=== PATIENT | female | born 1955 ===

== ENCOUNTER 2020-09-04 06:19 | Observation (INO) ==
--- NOTE | 2020-08-30 10:56 | History & Physical Report ---
Date of Service August 30, 2020 date of surgery: 09/04/20 Procedure: Left Total Knee Arthroplasty Assessment & Plan (1) Arthritis of knee, left: Plan: Risks and benefits of procedure discussed in detail today, patient would like to proceed with a left total knee replacement at [facility] as scheduled. will obtain medical clearance prior to surgery as well as obtain PATs at [facility]. Will place on ASA 81mg po bid x 1 month post op, f/u 2 weeks post op for routine post-operative care and x-ray, sooner if having any problems. will make arrangements for HHPT at the time of discharge. At this point in time, has failed conservative measures and would like to proceed with surgical intervention. will use dermabond and stratafix for post op closure, had reaction to robert after her . The risks and benefits have been discussed including, but not limited to, risk of infection, nerve injury, stiffness, loss of motion, failure to improve, etc. Reasonable outcomes and options of treatment were discussed. An explanation of appropriate alternatives to the procedure that may be advantageous were discussed and their risks and benefits, as well as the risks and benefits of not proceeding with treatment. I offered to answer any additional inquiries concerning the treatment involved. All the patient's questions were answered. The patient is agreeable, understanding of the treatment plan and alternatives, and wishes to proceed with the treatment plan. History of Present Illness Chief Complaint: left knee pain Primary Care Provider: NO PCP Lucila is a 65 year old female who complains of left knee pain, presents for pre-op evaluation prior to a left total knee replacement by Dr Doe at [facility]. she complains of pain, decreased range of motion, instability and stiffness in her left knee. Currently the patient states that the symptoms are moderate- severe and rated at 8/10. The pain is described as aching, sharp and throbbing. Her symptoms are aggravated by ascending stairs, daily activities, first steps while awake walking. Prior NSAIDs include IBU and Aleve. she has been treated with previous cortisone and visco injections in the past without much relief as well as uses a knee brace. Allergies Allergy/AdvReac Type Severity Reaction Status Date / Time latex Allergy Unknown ITCHY SKIN Verified 08/29/20 12:25 RASH WITH GLOVES cephalexin AdvReac Unknown PASSED OUT Verified 08/29/20 12:25 morphine AdvReac Unknown PASSED OUT Verified 08/29/20 12:25 WITH PO-IV OK METAL Allergy Unknown RAISED Uncoded 08/29/20 12:25 SKIN WITH SKIN ROBERT IN INCISION Home Medications Medication Instructions Recorded Confirmed Type Nebulizer Medication 1 - 2 inh INHALATION TID PRN 08/29/20 08/29/20 History albuterol sulfate 90 mcg/actuation 2 puff INHALATION 6XD PRN 08/29/20 08/29/20 History aerosol inhaler (ProAir HFA) allopurinol 100 mg tablet 100 mg PO QAM 08/29/20 08/29/20 History aspirin 81 mg tablet,delayed 81 mg PO QAM 08/29/20 08/29/20 History release atorvastatin 80 mg tablet 80 mg PO HS 08/29/20 08/29/20 History buspirone 5 mg tablet 5 mg PO BID 08/29/20 08/29/20 History fluticasone propionate 50 1 spray INTRANASAL BID 08/29/20 08/29/20 History mcg/actuation nasal spray,suspension ibuprofen 800 mg tablet 800 mg PO TID 08/29/20 08/29/20 History lactobacillus combination no.4 3 2 cell PO QAM 08/29/20 08/29/20 History billion cell capsule (Probiotic) levocetirizine 5 mg tablet 5 mg PO HS 08/29/20 08/29/20 History levothyroxine 150 mcg tablet 150 mcg PO QAM 08/29/20 08/29/20 History lisinopril 20 mg tablet 20 mg PO QAM 08/29/20 08/29/20 History metoprolol succinate 25 mg 25 mg PO QAM 08/29/20 08/29/20 History tablet,extended release 24 hr montelukast 10 mg tablet 10 mg PO QAM 08/29/20 08/29/20 History multivitamin 1 tab PO QAM 08/29/20 08/29/20 History nitroglycerin 0.4 mg sublingual 0.4 mg SUBLINGUAL UD PRN 08/29/20 08/29/20 History tablet (Nitrostat) ofloxacin 0.3 % ear drops 10 drp OTIC (EAR) TID 08/29/20 08/29/20 History oxycodone-acetaminophen 10 mg-325 1 tab PO Q4H PRN 08/29/20 08/29/20 History mg tablet pantoprazole 20 mg tablet,delayed 20 mg PO QAM 08/29/20 08/29/20 History release solifenacin 10 mg tablet 10 mg PO QAM 08/29/20 08/29/20 History tizanidine 4 mg capsule 4 mg PO TID PRN 08/29/20 08/29/20 History trazodone 100 mg tablet 100 mg PO HS 08/29/20 08/29/20 History venlafaxine 225 mg tablet,extended 225 mg PO QAM 08/29/20 08/29/20 History release 24 hr Past Med/Surg History Medical History Anxiety Asthma Chronic back pain BULGING DISCS NECK/LUMBAR AREA Chronic obstructive pulmonary disease Depression Heart palpitations F/U DR [facility] Hiatal hernia Hyperlipidemia Hypertension Hypothyroidism S/P THYROIDECTOMY Injury S/P INJURY 2006-RIGHT ARM/SHOULDER -PAINFUL-HAS HAD INJECTIONS FOR PAIN MANAGEMENT Overactive bladder Surgical History History of adenoidectomy History of anesthesia reaction WOKE UP DURING SURGERY FOR NERVES TO BACK-UNABLE TO TELL ANYONE-VERY FRIGHTENING History of appendectomy History of cardiac cath 7 YRS AGO-[facility]NO STENTS History of carpal tunnel release R/L History of section X 2 History of cholecystectomy History of colonoscopy History of elbow surgery R/L ULNAR NERVE History of esophagogastroduodenoscopy (EGD) History of hand surgery RIGHT THUMB History of hysterectomy TOTAL History of knee surgery LEFT PATELLA History of myringotomy BILAT History of removal of cyst LARYNX-BENIGN History of shoulder surgery LEFT History of thyroidectomy, subtotal History of tonsillectomy History of tooth extraction Nausea and vomiting after administration of anesthetic agent HX MOTION SICKNESS-PATCH HELPS Family History Father Family history of diabetes mellitus Family hx of colon cancer Social History Smoking Status: Current every day smoker Smoking End Date: 20 CIGS A DAY; Second Hand Exposure: Yes (FAMILY SMOKES); Do You Dip or Chew Tobacco: No; Hx Alcohol Use: Yes Alcohol type: beer Hx Substance Use: Yes Preferred Language: Liberian Communication Ability: Effective Coke Still Cleaner Required: No Beliefs That Will Affect Care: None Current Living Situation: Alone current occupational status: retired Other Information That Helps Us Care for You: No Feels Safe at Home: Yes Safety Concerns: Feels Safe At This Time Assistive Devices: Brace/Splint/Immobilizer, Denture - Upper, Denture - Lower and Glasses Assistive Devices Comment: KNEE BRACE Review of Systems Review of Systems: All systems reviewed & are unremarkable except as noted in HPI & below Constitutional: no fever, no chills and no sweats Respiratory: no cough and no dyspnea Cardiovascular: no chest pain, no dyspnea and no orthopnea Gastrointestinal: no abdominal pain, no nausea and no vomiting Musculoskeletal: as per Subjective / HPI Physical Exam Physical Exam: HT: 5ft 6in WT: 78.01kg BP: 130/84 Pulse: 91 Constitutional: WD/WN, vitals as above no acute distress Respiratory: normal respiratory effort, lungs clear to auscultation no respiratory distress, no labored breathing and does not use accessory muscles Cardiovascular: RRR, no murmur, no edema Gastrointestinal (Abdomen): normal bowel sounds, soft, nontender, no hepatosplenomegaly Musculoskeletal: Knee: + knee abnormal to inspection (LEFT KNEE), + effusion (+1 effusion), + limited ROM of knee (ROM 0/3/110), + knee ROM with crepitation, + joint line tenderness (medial joint line) and + Daria's sign positive; no deformity, no skin erythema, no ecchymosis, no valgus laxity, no varus laxity, anterior drawer test negative, Sho's sign negative and pivot shift test negative Results & Data Results & Data ([facility]) Diagnostic Findings Left Knee X-ray: left knee series confirms degenerative changes to the left knee, greatest medial compartments and patellofemoral joint, showing joint space narrowing, osteophyte formation. no acute bony pathology noted.
--- NOTE | 2020-08-30 12:33 | Anesthesiology Consultation ---
Date of Service August 30, 2020 Assessment & Plan (1) Encounter for pre-operative examination: Chart Review Chart Review: Acceptable Risk for Surgery and Patient NOT seen in Pre Admission Testing 08/07/20 Cardiac clearance Consults Requested none History Surgery Operation Date: 09/04/20 08:10 Proposed Procedures p Left Total Knee Arthroplasty - Oscar Doe DO Height/Weight Height: 5 ft 6 in Weight: 78.018 kg Allergies Allergy/AdvReac Type Severity Reaction Status Date / Time latex Allergy Unknown ITCHY SKIN Verified 08/29/20 12:25 RASH WITH GLOVES cephalexin AdvReac Unknown PASSED OUT Verified 08/29/20 12:25 morphine AdvReac Unknown PASSED OUT Verified 08/29/20 12:25 WITH PO-IV OK METAL Allergy Unknown RAISED Uncoded 08/29/20 12:25 SKIN WITH SKIN EMEKA IN INCISION Medications Home Medications Medication Instructions Recorded Confirmed Last Taken Nebulizer Medication 1 - 2 inh INHALATION TID PRN 08/29/20 08/29/20 Unknown albuterol sulfate 90 mcg/actuation 2 puff INHALATION 6XD PRN 08/29/20 08/29/20 Unknown aerosol inhaler (ProAir HFA) allopurinol 100 mg tablet 100 mg PO QAM 08/29/20 08/29/20 Unknown aspirin 81 mg tablet,delayed 81 mg PO QAM 08/29/20 08/29/20 Unknown release atorvastatin 80 mg tablet 80 mg PO HS 08/29/20 08/29/20 Unknown buspirone 5 mg tablet 5 mg PO BID 08/29/20 08/29/20 Unknown fluticasone propionate 50 1 spray INTRANASAL BID 08/29/20 08/29/20 Unknown mcg/actuation nasal spray,suspension ibuprofen 800 mg tablet 800 mg PO TID 08/29/20 08/29/20 Unknown lactobacillus combination no.4 3 2 cell PO QAM 08/29/20 08/29/20 Unknown billion cell capsule (Probiotic) levocetirizine 5 mg tablet 5 mg PO HS 08/29/20 08/29/20 Unknown levothyroxine 150 mcg tablet 150 mcg PO QAM 08/29/20 08/29/20 Unknown lisinopril 20 mg tablet 20 mg PO QAM 08/29/20 08/29/20 Unknown metoprolol succinate 25 mg 25 mg PO QAM 08/29/20 08/29/20 Unknown tablet,extended release 24 hr montelukast 10 mg tablet 10 mg PO QAM 08/29/20 08/29/20 Unknown multivitamin 1 tab PO QAM 08/29/20 08/29/20 Unknown nitroglycerin 0.4 mg sublingual 0.4 mg SUBLINGUAL UD PRN 08/29/20 08/29/20 Unknown tablet (Nitrostat) ofloxacin 0.3 % ear drops 10 drp OTIC (EAR) TID 08/29/20 08/29/20 Unknown oxycodone-acetaminophen 10 mg-325 1 tab PO Q4H PRN 08/29/20 08/29/20 Unknown mg tablet pantoprazole 20 mg tablet,delayed 20 mg PO QAM 08/29/20 08/29/20 Unknown release solifenacin 10 mg tablet 10 mg PO QAM 08/29/20 08/29/20 Unknown tizanidine 4 mg capsule 4 mg PO TID PRN 08/29/20 08/29/20 Unknown trazodone 100 mg tablet 100 mg PO HS 08/29/20 08/29/20 Unknown venlafaxine 225 mg tablet,extended 225 mg PO QAM 08/29/20 08/29/20 Unknown release 24 hr Past Medical History Medical History Anxiety Asthma Chronic back pain BULGING DISCS NECK/LUMBAR AREA Chronic obstructive pulmonary disease Depression Heart palpitations F/U [facility] Hiatal hernia Hyperlipidemia Hypertension Hypothyroidism S/P THYROIDECTOMY Injury S/P INJURY 2006-RIGHT ARM/SHOULDER -PAINFUL-HAS HAD INJECTIONS FOR PAIN MANAGEMENT Overactive bladder Past Family History Family History Father Family history of diabetes mellitus Family hx of colon cancer Past Surgical History Surgical History History of adenoidectomy History of anesthesia reaction WOKE UP DURING SURGERY FOR NERVES TO BACK-UNABLE TO TELL ANYONE-VERY FRIGHTENING History of appendectomy History of cardiac cath 7 YRS AGO-[facility]-NO STENTS History of carpal tunnel release R/L History of section X 2 History of cholecystectomy History of colonoscopy History of elbow surgery R/L ULNAR NERVE History of esophagogastroduodenoscopy (EGD) History of hand surgery RIGHT THUMB History of hysterectomy TOTAL History of knee surgery LEFT PATELLA History of myringotomy BILAT History of removal of cyst LARYNX-BENIGN History of shoulder surgery LEFT History of thyroidectomy, subtotal History of tonsillectomy History of tooth extraction Nausea and vomiting after administration of anesthetic agent HX MOTION SICKNESS-PATCH HELPS Social History Smoking Status: Current every day smoker Do You Dip or Chew Tobacco: No Smoking End Date: 20 CIGS A DAY Hx Alcohol Use: Yes Alcohol type: beer alcohol intake frequency: a few times a week Hx Substance Use: Yes substance use type: prescription drug Testing Laboratory Results 08/06/20 WBC 9.6 Hgb 15.2 platelet 227 Na 144 K 3.8 Cl 108 CO2 25 BUN 14 Cr 0.9 glucose 103 PT 12.6 INR 1.0 PTT 26.4 Electrocardiogram Date: 08/07/20 Sinus rhythm, rate 89 bpm Old anteroseptal infarct
[~2020-09-04 06:19] MED LIST: ACETAMINOPHEN 500 MG TAB PO SCH; ANCEF - ALLERGY NOTED TO ORDERED MEDICATION SCH; CLINDAMYCIN 600 MG/54 ML BAG IV SCH; CeleBREX 200 MG CAP PO SCH; GABAPENTIN 300 MG CAP PO SCH; LR 500ML BOLUS IV SCH; METOCLOPRAMIDE HCL 10 MG TABLET PO SCH; ROPIVACAINE 0.5% HCL/PF 150 MG, BUPIVACAINE 0.75% MPF 20 ML, EPINEPHrine 30MG/30ML (OR ... INSTIL SCH; TRANEXAMIC ACID 1,000 MG **IV Intra-op IV SCH; dexAMETHasone 4 MG TAB PO SCH; oxyCODONE HCL 10 MG TABCR (OxyCONTIN) PO SCH
[2020-09-04] MEDS ORDERED: BUPIVACAINE 0.5 % 5 MG/1 ML PF 10ML VIAL ONE (06:34)
[2020-09-04] MEDS ORDERED: EPINEPHrine INJ 1 MG/ML AMP ONE (06:34)
[2020-09-04] MEDS ORDERED: BUPIVACAINE 0.25% 30 ML VIAL ONE (06:34)
[2020-09-04] MEDS ORDERED: CLINDAMYCIN 600 MG/54 ML D5W IV ONE (07:33)
--- NOTE | 2020-09-04 07:34 | History & Physical Bridge Note ---
Date of Service September 04, 2020 History & Physical Bridge Note I have examined the patient, reviewed the History & Physical and in the interval since the performance of the History & Physical I have noted the following changes of clinical significance: no changes noted
[2020-09-04] MEDS ORDERED: ROPIVACAINE 0.5% 5 MG/ML 30 ML VIAL ONE (07:40)
[2020-09-04] MEDS ORDERED: fentaNYL citrate 100 MCG/2 ML VIAL ONE (08:24)
[2020-09-04] MEDS ORDERED: MIDAZOLAM HCL 1 MG/ML 2ML VIAL ONE (08:24)
[2020-09-04] MEDS ORDERED: PROPOFOL IV EMULSION 10 MG/ML 20 ML VIAL IV ONE (08:44)
[2020-09-04] MEDS ORDERED: LIDOCAINE 2% 2 ML VIAL/AMP(20MG/ML) INFIL ONE (08:44)
[2020-09-04] MEDS ORDERED: ORTHO JOINT ANESTHETIC ONE (09:29)
[2020-09-04] MEDS ORDERED: ATROPINE SULFATE 0.1 MG/ML 10ML SYR IV PRN (10:19)
[2020-09-04] MEDS ORDERED: ePHEDrine sulfate 50 MG/ML AMP IV PRN (10:19)
[2020-09-04] MEDS ORDERED: TRANEXAMIC ACID / 0.7% NACL 1000MG/100ML BAG IV ONE (10:28)
--- NOTE | 2020-09-04 10:45 | Operative Report ---
Post Operative Report Pre & Post Diagnosis Operation Date: 09/04/20 08:45 Pre-Op Diagnosis: Osteoarthritis, Left Knee Post-Op Diagnosis: Osteoarthritis, Left Knee I identified the patient and participated in the time-out.: Yes Procedure Operation Date: 09/04/20 08:45 Actual Procedures p Left Total Knee Arthroplasty(Left) utilizing [employer]ant [employer] Nephew journey to nonblock total knee arthroplasty size 3 femur to tibia 9 polytwenty 9 oval patella- Oscar Doe DO Surgeon Oscar Doe DO Field Installer [facility] Estimated Blood Loss 5 Findings Consistent with Post-Op Diagnosis Patient has severe end-stage tricompartmental degenerative joint disease 10 degree flexion contracture varus alignment [id number] eburnated bone subchondral sclerosis marginal osteophytes Specimens Bone and cartilage Drains Medium bore Hemovac Anesthesia Type MAC Spinal Regional Complications none Disposition Accompanied Patient To Recovery: No Disposition: Recovery Room Indications Patient presents with severe end-stage DJD left knee no response to conservative management and physical therapy anti-inflammatories relative rest activity modification corticosteroid injection viscosupplementation above intraoperative findings were noted Description of Procedure After proper prepping and draping of the left lower extremity anterior midline incision was made over the region of the extensor extensor mechanism after meticulous hemostasis was obtained and maintained in subcutaneous tissues a medial parapatellar incision was made The patella was subluxed lateralward the medial lateral gutter were cleaned from any hypertrophic synovitis and scar tissue of the distal femoral block was placed and the distal femoral osteotomy cut was made subsequently the chamfers anterior and posterior osteotomy cuts were made utilizing the 4-in-1 block the tibia was subsequently subluxed anteriorward medial and ateral meniscal remnants were excised in their entirety remnants of the anterior and posterior cruciate ligaments were excised in their entirety excellent exposure of the proximal tibia was obtained the tibial osteotomy guide was placed on the proximal tibial osteotomy cut was made once again the knee was irrigated with copious amounts of sterile saline solution the patella was subsequently everted lateralward thickened scar tissue around the patella was removed the patella was subsequently cut utilizing a freehand technique and was drilled prepared for final preparation and placement of p atella socially flexion-extension gaps were checked and the equal and symmetric trials were placed to the appropriate femoral and tibial trials with poly-spacer being placed for equal flexion and extension gaps and full range of motion including extension to 0 and flexion to 140 the trial components after having been taken to recovery range of motion was subsequently removed meticulous hemostasis was obtained and maintained subsequently a knee block injection of joint cocktail including ropivacaine 0.5% 150 mg. Bupivacaine 0.5% epinephrine 1-200,030 mL's toradol 30 mg dexamethasone 4 mg ketamine 10 mg clonidine 100 micrograms normal saline solution 30 mg was infiltrated into the soft tissues of the posterior knee medial lateral gutters and periosteal synovium special attention was paid to protect neurovascular structures at all times subsequently trial components having been removed the knee was irrigated with sterile saline solution. debris was removed the proximal tibia was subsequently prepared and was made ready for the placement of the tibial component tibial component was also cemented and tamped into position the femoral component was subsequently placed and cemented in the position the patellar component was subsequently cemented in position because hemostasis once again obtained and maintained wound having been thoroughly irrigated with debridement and debridement lavage was performed as well as a medial parapatellar incision closed with #1 Vicryl in interrupted fashion subcutaneous was closed with #2 Vicryl skin was closed with skin clips. PA-C was necessary for prepping and drapping as well as wound closure of deep fascia Sub cutaneous tissue and skin and was necessary for the case. A sterile compressive dressing was placed patient was taken to recovery in stable condition of report dictated by Nader I attest to the content of the Intraoperative Record and any orders documented therein. Any exceptions are noted below. I attest to the content of the Intraoperative Record and any orders documented therein. Any exceptions are noted below.
--- NOTE | 2020-09-04 12:21 | Anesthesiology Progress Note ---
Date of Service September 04, 2020 Anesthesia Post Procedure Vital Signs Vital Signs: Temp Pulse Pulse Resp BP Pulse Ox 09/04/20 12:15 36.4 C L 80 16 130/105 H 93 09/04/20 12:00 83 16 152/96 H 94 09/04/20 11:50 85 16 155/98 H 98 09/04/20 11:40 91 H 16 147/101 H 96 09/04/20 11:33 36.6 C 98 H 16 146/81 H 95 09/04/20 07:05 37.0 C 82 22 159/97 H 97 Pain Intensity Left Knee: Pain Intensity: 9 Transfer of Care Handoff Completed per policy Notes Mental Status: alert / awake / arousable Patient Amnestic to Procedure: Yes Nausea / Vomiting: adequately controlled Pain: adequately controlled Airway Patency, RR, SpO2: stable & adequate BP & HR: stable & adequate Hydration State: stable & adequate Neuraxial Anesthesia: was administered and sensory block is resolving Anesthetic Complications: no major complications apparent
--- NOTE | 2020-09-04 12:43 | XRay Report ---
XR knee LT 1 or 2V routine CLINICAL HISTORY: Postoperative evaluation. COMPARISON: None FINDINGS: Alignment of the total left knee arthroplasty is anatomic. No periprosthetic fracture or u nexpected radiopaque foreign body. Drains are in place. IMPRESSION: Expected findings following total left knee arthroplasty. ACT 112: Negative or not required by law. Electronically signed by: Lars Vidales M.D. 09/04/2020 12:42 PM
[2020-09-04] MEDS ORDERED: NALOXONE HCL 0.4 MG/1 ML VIAL/CARP IV PRN (12:47)
[2020-09-04] MEDS ORDERED: MAGNESIUM HYDROXIDE SUSP 30 ML UDC PO PRN (12:47)
[2020-09-04] MEDS ORDERED: HYDROmorphone INJ 0.5 MG/0.5 ML SYR IV PRN (12:47)
[2020-09-04] MEDS ORDERED: tiZANidine HCL 4 MG TABLET PO PRN (12:47)
[2020-09-04] MEDS ORDERED: NITROGLYCERIN SL 0.4 MG/TAB TAB SL PRN (12:47)
[2020-09-04] MEDS ORDERED: bisacodyL 10 MG SUPP PR PRN (12:47)
[2020-09-04] MEDS ORDERED: ONDANSETRON INJ 2 MG/ML 2 ML VIAL IV PRN (12:47)
[2020-09-04] MEDS ORDERED: ALBUTEROL HFA 8 GM INHALER INH PRN (12:51)
[2020-09-04] MEDS ORDERED: OFLOXACIN 0.3% OT SCH (14:00)
[2020-09-04] MEDS ORDERED: TRANEXAMIC ACID IV ONE (14:20)
[2020-09-04] MEDS ORDERED: SODIUM CHLORIDE 0.9% IV ONE (14:20)
[2020-09-04] MEDS: SODIUM CHLORIDE 0.9% 1000ML 1,000 ML IV SCH ×2 (16:58→21:45)
[2020-09-04] MEDS ORDERED: TRANEXAMIC ACID / 0.7% NACL 1,000 MG/100 ML BAG IV ONE (17:00)
--- NOTE | 2020-09-04 17:38 | Hospitalist Consultation ---
Date of Consultation September 04, 2020 Assessment & Plan (1) Arthritis of knee, left: S/p left total knee arthroplasty with Dr. Doe on 09/04. No complications reported. - Post-op care per primary team - DVT ppx per primary team - ASA 81 mg PO BID (2) Hypertension: BP presently 135/80. - Continue home lisinopril, metoprolol (3) Hypothyroidism: Hx of thyroidectomy. No TSH noted in chart. No signs/symptoms of hypo- /hyperthyroidism. - Continue home Synthroid 150 mcg (4) Depression: No overt symptoms at present. - Continue home buspirone, trazodone, venlafaxine (5) Chronic obstructive pulmonary disease: No present shortness of breath reported. - Continue montelukast, cetirizine - DuoNebs PRN (6) Overactive bladder: - Continue solifenacin if family brings it in (7) DVT prophylaxis: ASA 81 mg PO BID per primary team Given medical stability, Hospital Medicine team will sign off. Please re-consult with any questions or concerns. Thank you for letting us assist in the care of this patient! History of Present Illness Attending Physician: Oscar Doe DO History of Present Illness 65 yo F w/ hx of HTN, hypothyroidism who presents as a routine post-operative consult after left total knee arthroplasty with Dr. Doe on 09/04. Surgery was without any issues. EBL was 5 mL. Allergies Allergy/AdvReac Type Severity Reaction Status Date / Time latex Allergy Unknown ITCHY SKIN Verified 09/04/20 06:48 RASH WITH GLOVES cephalexin AdvReac Unknown PASSED OUT Verified 09/04/20 06:48 morphine AdvReac Unknown PASSED OUT Verified 09/04/20 06:48 WITH PO-IV OK METAL Allergy Unknown RAISED Uncoded 08/29/20 12:25 SKIN WITH SKIN EMEKA IN INCISION Home Medications Medication Instructions Recorded Confirmed Type Nebulizer Medication 1 - 2 inh INHALATION TID PRN 08/29/20 09/04/20 History albuterol sulfate 90 mcg/actuation 2 puff INHALATION 6XD PRN 08/29/20 09/04/20 History aerosol inhaler (ProAir HFA) allopurinol 100 mg tablet 100 mg PO QAM 08/29/20 09/04/20 History aspirin 81 mg tablet,delayed 81 mg PO QAM 08/29/20 09/04/20 History release atorvastatin 80 mg tablet 80 mg PO HS 08/29/20 09/04/20 History buspirone 5 mg tablet 5 mg PO BID 08/29/20 09/04/20 History fluticasone propionate 50 1 spray INTRANASAL BID 08/29/20 09/04/20 History mcg/actuation nasal spray,suspension ibuprofen 800 mg tablet 800 mg PO TID 08/29/20 09/04/20 History lactobacillus combination no.4 3 2 cell PO QAM 08/29/20 09/04/20 History billion cell capsule (Probiotic) levocetirizine 5 mg tablet 5 mg PO HS 08/29/20 09/04/20 History levothyroxine 150 mcg tablet 150 mcg PO QAM 08/29/20 09/04/20 History lisinopril 20 mg tablet 20 mg PO QAM 08/29/20 09/04/20 History metoprolol succinate 25 mg 25 mg PO QAM 08/29/20 09/04/20 History tablet,extended release 24 hr montelukast 10 mg tablet 10 mg PO QAM 08/29/20 09/04/20 History (Singulair) multivitamin 1 tab PO QAM 08/29/20 09/04/20 History nitroglycerin 0.4 mg sublingual 0.4 mg SUBLINGUAL UD PRN 08/29/20 09/04/20 History tablet (Nitrostat) oxycodone-acetaminophen 10 mg-325 1 tab PO Q4H PRN 08/29/20 09/04/20 History mg tablet pantoprazole 20 mg tablet,delayed 20 mg PO QAM 08/29/20 09/04/20 History release solifenacin 10 mg tablet 10 mg PO QAM 08/29/20 09/04/20 History tizanidine 4 mg capsule 4 mg PO TID PRN 08/29/20 09/04/20 History trazodone 100 mg tablet 100 mg PO HS 08/29/20 09/04/20 History venlafaxine 225 mg tablet,extended 225 mg PO QAM 08/29/20 09/04/20 History release 24 hr Patient History Medical History (Updated 09/04/20 @ 17:36 by Ciro Dutton MD) Anxiety Asthma Chronic back pain BULGING DISCS NECK/LUMBAR AREA Chronic obstructive pulmonary disease Depression Heart palpitations F/U [facility] Hiatal hernia Hyperlipidemia Hypertension Hypothyroidism S/P THYROIDECTOMY Injury S/P INJURY 2006-RIGHT ARM/SHOULDER -PAINFUL-HAS HAD INJECTIONS FOR PAIN MANAGEMENT Overactive bladder Surgical History History of adenoidectomy History of anesthesia reaction WOKE UP DURING SURGERY FOR NERVES TO BACK-UNABLE TO TELL ANYONE-VERY FRIGHTENING History of appendectomy History of cardiac cath 7 YRS AGO-[facility]-NO STENTS History of carpal tunnel release R/L History of section X 2 History of cholecystectomy History of colonoscopy History of elbow surgery R/L ULNAR NERVE History of esophagogastroduodenoscopy (EGD) History of hand surgery RIGHT THUMB History of hysterectomy TOTAL History of knee surgery LEFT PATELLA History of myringotomy BILAT History of removal of cyst LARYNX-BENIGN History of shoulder surgery LEFT History of thyroidectomy, subtotal History of tonsillectomy History of tooth extraction Nausea and vomiting after administration of anesthetic agent HX MOTION SICKNESS-PATCH HELPS Family History Father Family history of diabetes mellitus Family hx of colon cancer Social History Smoking Status: Current every day smoker Smoking End Date: 20 CIGS A DAY; Second Hand Exposure: Yes (FAMILY SMOKES); Do You Dip or Chew Tobacco: No; Hx Alcohol Use: Yes Alcohol type: beer Hx Substance Use: Yes Preferred Language: Marshallese Communication Ability: Effective Syrup Shed Supervisor Required: No Beliefs That Will Affect Care: None Current Living Situation: Alone current occupational status: retired Other Information That Helps Us Care for You: No Feels Safe at Home: Yes Safety Concerns: Feels Safe At This Time Assistive Devices: Glasses and Walker Assistive Devices Comment: KNEE BRACE Review of Systems Review of Systems: All systems reviewed & are unremarkable except as noted in HPI & below Physical Exam Constitutional: WD/WN, vitals as above Eyes: EOM intact bilaterally; no conjunctival abnormality ENMT: external ear and nose normal, oropharynx normal Neck: trachea midline, no thyromegaly normal visual inspection Respiratory: normal respiratory effort, lungs clear to auscultation no respiratory distress Cardiovascular: RRR, no murmur, no edema Gastrointestinal (Abdomen): Inspection/Auscultation: abdomen normal to inspection; abdomen not distended Musculoskeletal: no cyanosis or clubbing, extremities motor strength 5/5 Knee: + knee abnormal to inspection (Left bandaged) Skin: no rashes, warm and dry Neurologic: moves all extremities and awake Psychiatric: Orientation: alert, oriented to person and cooperative Results & Data Results & Data ([facility]) Vital Signs (Past 12 Hours) Vital Signs Temp Pulse Pulse Pulse Resp BP Pulse Ox 09/04/20 15:20 36.9 C 78 20 133/82 95 09/04/20 14:30 36.7 C 79 18 147/99 H 95 09/04/20 14:00 84 16 162/91 H 95 09/04/20 13:27 36.6 C 87 16 157/100 H 95 09/04/20 13:00 84 18 139/101 H 96 09/04/20 12:45 80 18 150/86 H 96 09/04/20 12:30 85 16 143/84 H 95 09/04/20 12:15 36.4 C L 80 16 130/105 H 93 09/04/20 12:00 83 16 152/96 H 94 09/04/20 11:50 85 16 155/98 H 98 09/04/20 11:40 91 H 16 147/101 H 96 09/04/20 11:33 36.6 C 98 H 16 146/81 H 95 09/04/20 07:05 37.0 C 82 22 159/97 H 97 PG Care Time/CCT Total # of Minutes Spent Total Time Spent with Patient: Total time spent is greater than 50% in coordination of care (as documented) at patient's floor/unit and/or counseling patient: Coding Level of Care Code 58905 Office/OBS Consult Lvl 4 Diagnoses Arthritis of knee, left M17.12 Hypertension I10 Hypothyroidism E03.9 Depression F32.9 Chronic obstructive pulmonary disease J44.9 DVT prophylaxis Z29.9 Overactive bladder N32.81
[2020-09-04] MEDS: CLINDAMYCIN 600 MG in DEXTROSE 5% 50 ML IV SCH (17:58)
[2020-09-04] MEDS ORDERED: SENNA 8.6 MG TAB PO SCH (21:00)
[2020-09-04] MEDS ORDERED: ATORVASTATIN 40 MG TAB PO SCH (21:00)
[2020-09-04] MEDS ORDERED: traZODone HCL 100 MG TAB PO SCH (21:00)
[2020-09-04] MEDS ORDERED: CETIRIZINE HCL 10 MG TABLET PO SCH (21:00)
[2020-09-04] MEDS: ASPIRIN 81 MG ECTAB PO SCH (21:23)
[2020-09-04] MEDS: busPIRone 5 MG TAB PO SCH (21:23)
[2020-09-04] MEDS: DOCUSATE SODIUM 100 MG CAP PO SCH (21:24)
[2020-09-04] MEDS: FLUTICASONE PROPIONATE NA SPR 16 GM BTL SCH (21:24)
[2020-09-04] MEDS: ACETAMINOPHEN 500 MG TAB PO SCH (21:24)
[2020-09-05] MEDS: oxyCODONE HCL IR 5 MG TAB (IMMEDIATE RELEASE) PO PRN ×2 (02:54→11:54)
[2020-09-05] MEDS: CLINDAMYCIN 600 MG in DEXTROSE 5% 50 ML IV SCH (02:54)
[2020-09-05] MEDS: ACETAMINOPHEN 500 MG TAB PO SCH ×2 (06:11→14:24)
[2020-09-05] MEDS ORDERED: LEVOTHYROXINE SODIUM 150 MCG TABLET PO SCH (06:30)
[2020-09-05 08:30] LABS: Hematocrit (blood only) 36.7 % (37-47); Hemoglobin 12.2 g/dL (12.0-16.0); Mean Corpuscular Hgb Conc 33.2 g/dL (32-36); Mean Corpuscular Volume 93.4 fL (80-100); Mean Platelet Volume 10.8 fL (7.4-10.4); Platelet Count 200 K/uL (130-400); RDW Coefficient of Variation 14.1 % (11.5-14.5); RDW Standard Deviation 48.1 fL (36.4-46.3); Red Blood Count 3.93 M/uL (4.2-5.4); White Blood Count 17.44 K/uL (4.8-10.8)
[2020-09-05] MEDS: ASPIRIN 81 MG ECTAB PO SCH (08:47)
[2020-09-05] MEDS: DOCUSATE SODIUM 100 MG CAP PO SCH (08:49)
[2020-09-05] MEDS: busPIRone 5 MG TAB PO SCH (08:49)
[2020-09-05] MEDS: FLUTICASONE PROPIONATE NA SPR 16 GM BTL SCH (08:50)
[2020-09-05] MEDS ORDERED: METOPROLOL SUCC 25MG EXT REL TAB PO SCH (09:00)
[2020-09-05] MEDS ORDERED: MULTIVITAMIN TAB PO SCH (09:00)
[2020-09-05] MEDS ORDERED: lisinopril 20 MG TAB PO SCH (09:00)
[2020-09-05] MEDS ORDERED: SOLIFENACIN 10 MG PO SCH (09:00)
[2020-09-05] MEDS ORDERED: PANTOprazole 40 MG TAB PO SCH (09:00)
[2020-09-05] MEDS ORDERED: allopurinoL 100 MG TAB PO SCH (09:00)
[2020-09-05] MEDS ORDERED: MONTELUKAST SODIUM 10 MG TABLET PO SCH (09:00)
[2020-09-05] MEDS ORDERED: ADVANCED PROBIOTIC 1250 MG CAPSULE PO SCH (09:00)
[2020-09-05] MEDS ORDERED: VENLAFAXINE HCL XR 75 MG CAPXR PO SCH (09:00)
--- NOTE | 2020-09-05 09:11 | Orthopedic Progress Note ---
Date of Service September 05, 2020 Assessment & Plan (1) Arthritis of knee, left: Plan: Postop day 1 status post left total knee arthroplasty. PT/OT protocols. Weightbearing as tolerated. DVT prophylaxis-aspirin p.o. twice daily, SCDs, BRAYDEN gary. Pain management as written. DC planning-patient is planning for home health services upon discharge. We will see how she is progressing today with her physical therapy and pain control for possible discharge to home. Admission and Anticipated Discharge Date Admission Date: September 04, 2020 Subjective Postop day 1 Patient lying in bed awake and alert. No complaints this morning. Pain is controlled. Denies shortness of breath, chest pain, lightheadedness. She is hoping to go home today. Physical Exam Physical Exam: Dressings are clean, dry, and intact. Calves are soft and nontender. Neurovascular is intact. Toes are mobile. She has good dorsiflexion and plantarflexion of the left foot. Hemovac drainage was 75 mL from the previous shift. Results & Data ([facility]) Vital Signs (Past 12 Hours) Vital Signs Temp Pulse Pulse Resp BP Pulse Ox 09/05/20 07:00 36.7 C 72 18 128/80 92 09/05/20 03:09 36.9 C 78 16 136/79 93 09/04/20 22:24 36.8 C 78 16 144/80 H 91 Laboratory Results 09/05/20 09/05/20 09/05/20 Range/Units 08:07 08:07 08:07 WBC 17.44 H (4.8-10.8) K/uL RBC 3.93 L (4.2-5.4) M/uL Hgb 12.2 (12.0-16.0) g/dL Hct 36.7 L (37-47) % MCV 93.4 (80-100) fL MCH 31.0 (25-34) pg MCHC 33.2 (32-36) g/dL RDW Std Deviation 48.1 H (36.4-46.3) fL RDW Coeff of Malachi 14.1 (11.5-14.5) % Plt Count 200 (130-400) K/uL MPV 10.8 H (7.4-10.4) fL Sodium Pending Potassium Pending Chloride Pending Carbon Dioxide Pending Anion Gap Pending BUN Pending Creatinine Pending Est Cr Clr Drug Dosing Pending Est GFR ( Amer) Pending Est GFR (Non-Af Amer) Pending BUN/Creatinine Ratio Pending Glucose Pending Calcium Pending Hepatitis C Ab Screen Pending
[2020-09-05 09:49] LABS: Calcium 8.3 mg/dl (8.5-10.1); Creatinine Clr Calc Pharmacy 54.4 ml/min; Est GFR (African American) 62.1 ml/min; Est GFR (Non-African American) 53.6 ml/min; Potassium 4.6 mmol/L (3.5-5.1)
--- NOTE | 2020-09-07 12:24 | Discharge Summary ---
Date of Service September 07, 2020 Admission HPI Per Admitting Provider Lucila is a 65 year old female who complains of left knee pain, presents for pre-op evaluation prior to a left total knee replacement by Dr Doe at [facility]. she complains of pain, decreased range of motion, instability and stiffness in her left knee. Currently the patient states that the symptoms are moderate- severe and rated at 8/10. The pain is described as aching, sharp and throbbing. Her symptoms are aggravated by ascending stairs, daily activities, first steps while awake walking. Prior NSAIDs include IBU and Aleve. she has been treated with previous cortisone and visco injections in the past without much relief as well as uses a knee brace. Admission Exam Per Admitting Provider Physical Exam: HT: 5ft 6in WT: 78.01kg BP: 130/84 Pulse: 91 Constitutional: WD/WN, vitals as above no acute distress Respiratory: normal respiratory effort, lungs clear to auscultation no respiratory distress, no labored breathing and does not use accessory muscles Cardiovascular: RRR, no murmur, no edema Gastrointestinal (Abdomen): normal bowel sounds, soft, nontender, no hepatosplenomegaly Musculoskeletal: Knee: + knee abnormal to inspection (LEFT KNEE), + effusion (+1 effusion), + limited ROM of knee (ROM 0/3/110), + knee ROM with crepitation, + joint line tenderness (medial joint line) and + Daria's sign positive; no deformity, no skin erythema, no ecchymosis, no valgus laxity, no varus laxity, anterior drawer test negative, Sho's sign negative and pivot shift test negative Principal Diagnosis Left knee osteoarthritis Discharge Data Allergies Allergy/AdvReac Type Severity Reaction Status Date / Time latex Allergy Unknown ITCHY SKIN Verified 09/04/20 06:48 RASH WITH GLOVES cephalexin AdvReac Unknown PASSED OUT Verified 09/04/20 06:48 morphine AdvReac Unknown PASSED OUT Verified 09/04/20 06:48 WITH PO-IV OK METAL Allergy Unknown RAISED Uncoded 08/29/20 12:25 SKIN WITH SKIN EMEKA IN INCISION Consultations 08/30/20 15:19 Consult Hospitalist Routine Procedures Performed Operation Date: 09/04/20 08:45 Actual Procedures p Left Total Knee Arthroplasty(Left) - Oscar Doe DO Ordered Studies 09/04/20 05:00 US - OR guided needle placemen Routine Hospital Course (1) Arthritis of knee, left: Assessment & Plan (1) Arthritis of knee, left: Plan: Postop day 1 status post left total knee arthroplasty. PT/OT protocols. Weightbearing as tolerated. DVT prophylaxis-aspirin p.o. twice daily, SCDinder, BRAYDEN gary. Pain management as written. DC planning-patient is planning for home health services upon discharge. We will see how she is progressing today with her physical therapy and pain control for possible discharge to home. Patient progressed well with her physical therapy and was felt she was stable for discharge. Admission and Anticipated Discharge Date Admission Date: September 04, 2020 Subjective Postop day 1 Patient lying in bed awake and alert. No complaints this morning. Pain is controlled. Denies shortness of breath, chest pain, lightheadedness. She is hoping to go home today. Physical Exam Physical Exam: Dressings are clean, dry, and intact. Calves are soft and nontender. Neurovascular is intact. Toes are mobile. She has good dorsiflexion and plantarflexion of the left foot. Hemovac drainage was 75 mL from the previous shift. Results & Data ([facility]) Vital Signs (Past 12 Hours) Vital Signs Temp Pulse Pulse Resp BP Pulse Ox 09/05/20 07:00 36.7 C 72 18 128/80 92 09/05/20 03:09 36.9 C 78 16 136/79 93 09/04/20 22:24 36.8 C 78 16 144/80 H 91 Laboratory Results 09/05/20 09/05/20 09/05/20 Range/Units 08:07 08:07 08:07 WBC 17.44 H (4.8-10.8) K/uL RBC 3.93 L (4.2-5.4) M/uL Hgb 12.2 (12.0-16.0) g/dL Hct 36.7 L (37-47) % Total Time Total Time Spent Total Time Spent (In Minutes): 5 Discharge Plan Discharge Items Patient Disposition: Home - Home Health Services Reason For Visit: Osteoarthritis, Left Knee Discharge Diagnosis: Left Knee Osteoarthritis Activity: Per Instructions section Weightbearing: Left weightbearing Weightbearing Comment: as tolerated with walker Non-emergency contact: Surgeon Call non-emergency contact if: you have any medication questions, your temperature is above 101.5, your wound has increased redness and your wound has increased drainage Follow-up/Referrals: Aidan Chandra CRNP [Primary Care Provider] - 09/12/20 11:00 am (TOSHA [facility]NADA PA-C WILL SEE YOU A HOSPITAL F/U VISIT.) Diet: Regular Addtl Attending Provider Instructions: ACTIVITY RECOMMENDATIONS: SELF CARE INSTRUCTIONS AFTER TOTAL KNEE REPLACEMENT A. You may need to continue a physical therapy program after discharge from the hospital. There are several options available to you. Your doctor will assist you in selecting the best one for you. 1. An out-patient facility 2 to 3 times a week for therapy or home therapy. 2. Continue working on all exercises taught to you in the hospital. Your goals should be to increase bending of your knee to 90 degrees and beyond and to fully straighten your knee. B. You may progress at your own pace from walking with a walker or crutches to a cane; then to no assistive devices. C. Make walking a part of your daily routine. Be up as much as comfortable with rest periods throughout the day. Rest with leg elevation is very important. Use the ice wrap frequently for the first 3-4 weeks. D. There are no restrictions on activities. You may ride in a car, shop, participate in water/wastewater project engineer and all social activities. E. Wear the long elastic stockings (BRAYDEN hose) 20 hours a day for 2 weeks after surgery. They can be removed several times a day for laundering and for a bath. F. You may shower, no tub baths until cleared by your doctor. SPECIAL CARE INSTRUCTIONS: VERY IMPORTANT TO READ AND REVIEW A. There are a few signs you need to watch for after you are home. Call [facility] if you notice any of the followin. Increased severe knee pain. Some pain is expected especially when you exercise. 2. Increased swelling in your leg or knee; pain or swelling of the calf muscle in either lower leg. 3. Any fluid drainage from the incision. 4. Shortness of breath or chest pain. B. Please call [facility] at if you have any concerns or questions about your operation or recovery. The doctor or his nurse will return your call promptly. C. You must take antibiotics before dental work, bladder, bowel or other surgery. Your doctor will provide you with a permanent care to carry describing this precaution. IMPORTANT: * REMEMBER TO TAKE ASPIRIN, 81 MG, TWICE DAILY FOR 4 WEEKS UNLESS OTHERWISE DIRECTED. THIS IS YOUR BLOOD THINNER. * HIGH RISK PATIENTS MAY BE PRESCRIBED A STRONGER BLOOD THINNER. THIS WILL BE PROVIDED AT DISCHARGE. * CALL IF INCREASED PAIN, REDNESS, DRAINAGE OR FEVER GREATER THAT 101. * WEAR BRAYDEN HOSE 20 HOURS PER DAY FOR 2 WEEKS. * DERMABOND Prineo- This is a mesh tape dressing that is covered with glue. It should remain in place until the incision is properly healed, usually 10-14 days. This dressing is designed to naturally slough off. You may trim the excess mesh tape as it peels off. Incision may be briefly wet in a shower. Dry immediately by blotting with a clean, dry towel. Do not bath or swim until instructed by your doctor. Do not scratch, rub, or pick at the dressing. Do not apply any topical ointments or lotions until dressing is completely removed and/or instructed by your doctor. There may be a small piece of suture material at one end of your incision. Do not pull or trim this. If it is bothersome or catching on clothing, you may cover it with a band-aid. Call the office with any questions about your wound. . FOLLOW UP VISIT: If appointment is not already scheduled: Please call [facility] to make a follow-up appointment for 2 weeks after your surgery at . Pending Studies at Discharge: No Stand-Alone Forms: My [facility] [address], Opioid Pain Management, Smoking Cessation Medications and DC Order Prescriptions: New polyethylene glycol 3350 [Miralax] 17 gram powder in packet 17 g PO DAILY PRN (Reason: constipation) Qty: 5 RF: 0 Narcan 4 mg/actuation spray,non-aerosol 1 sprays INTNAS ONCE Qty: 2 RF: 0 doxycycline hyclate 100 mg capsule 100 mg PO BID 14 Days Qty: 28 RF: 1 aspirin [Ecotrin Low Strength] 81 mg tablet,delayed release (DR/EC) 81 mg PO BID 30 Days Qty: 60 RF: 0 oxycodone 10 mg tablet 10 mg PO Q4H MDD 6 tablets PRN (Reason: pain) Qty: 18 RF: 0 Continued multivitamin Tablet 1 tab PO QAM RF: 0 buspirone 5 mg Tablet 5 mg PO BID RF: 0 atorvastatin 80 mg Tablet 80 mg PO HS RF: 0 lisinopril 20 mg Tablet 20 mg PO QAM RF: 0 allopurinol 100 mg Tablet 100 mg PO QAM RF: 0 pantoprazole 20 mg Tablet,Delayed Release (Dr/Ec) 20 mg PO QAM RF: 0 trazodone 100 mg Tablet 100 mg PO HS RF: 0 levothyroxine 150 mcg Tablet 150 mcg PO QAM RF: 0 montelukast [Singulair] 10 mg Tablet 10 mg PO QAM RF: 0 metoprolol succinate 25 mg Tablet Extended Release 24 Hr 25 mg PO QAM RF: 0 albuterol sulfate [ProAir HFA] 90 mcg/actuation Hfa Aerosol Inhaler 2 puff INHALATION 6XD PRN (Reason: Wheezing) RF: 0 fluticasone propionate 50 mcg/actuation [place],Suspension 1 spray INTRANASAL BID RF: 0 tizanidine 4 mg Capsule 4 mg PO TID PRN (Reason: Muscle Spasm) RF: 0 levocetirizine 5 mg Tablet 5 mg PO HS RF: 0 venlafaxine 225 mg Tablet Extended Release 24hr 225 mg PO QAM RF: 0 Probiotic 3 billion cell Capsule 2 cell PO QAM RF: 0 nitroglycerin [Nitrostat] 0.4 mg Tablet, Sublingual 0.4 mg sublingual UD PRN (Reason: Chest Pain) RF: 0 Nebulizer Medication 1 - 2 inh inhalation TID PRN (Reason: Wheezing) RF: 0 solifenacin 10 mg Tablet 10 mg PO QAM RF: 0 Discontinued ibuprofen 800 mg Tablet 800 mg PO TID RF: 0 aspirin [Aspir-81] 81 mg Tablet,Delayed Release (Dr/Ec) 81 mg PO QAM RF: 0 oxycodone-acetaminophen 10-325 mg Tablet 1 tab PO Q4H PRN (Reason: Pain) RF: 0 Discharge Orders: Discharge Order (Routine); Ordered 09/05/20 Ordered By: Anthony Steiner/Other Patient Handouts: DVT Post Op Prevention, Knee Replace After Surgery, Knee Replacement Total Dc Admission Data Admit Date/Time: 09/04/20 11:48 Attending Provider: Oscar Doe Admit Provider: Oscar Doe Primary Care Provider: Aidan Chandra Other Providers: Vic Aldrich Other Interventions: Discharge Summary Assessment (RN) Last Done: 09/05/20 12:54
== END 2020-09-05 15:23 | disposition home health service (06) ==
LOC: ASU 06:19 → PACUINP 06:19 → 3E 14:43
DX: J44.9 Chronic obstructive pulmonary disease, unspecified; Z88.5 Allergy status to narcotic agent; E03.9 Hypothyroidism, unspecified; M17.12 Unilateral primary osteoarthritis, left knee; Z88.1 Allergy status to other antibiotic agents; K44.9 Diaphragmatic hernia without obstruction or gangrene; Z79.899 Other long term (current) drug therapy; Z79.82 Long term (current) use of aspirin; F17.210 Nicotine dependence, cigarettes, uncomplicated; E78.5 Hyperlipidemia, unspecified; I10 Essential (primary) hypertension; Z91.040 Latex allergy status